=== PATIENT | male | born 1985 | race Two or more races ===

== ENCOUNTER 2022-07-16 16:29 | Emergency (ER) | payer BC, MEDICAID ==
[~2022-07-16] VITALS: Ht 175.3 cm; Wt 85.6 kg
[2022-07-16] MEDS ORDERED: cefTRIAXone SOD 1,000 MG VL IM ONE (17:45)
[2022-07-16] MEDS ORDERED: CEPH-510 PO (18:54)
[2022-07-17 00:17] VITALS: BP 118/78
== END 2022-07-17 00:18 | disposition home or self-care (01) ==
LOC: ER 16:29
DX: L03.115 Cellulitis of right lower limb (principal)
CPT/HCPCS: 73552; 93971; 96372; 99284; J0696